=== PATIENT | female | born 1970 | race African-American/Black ===

== ENCOUNTER 2025-01-19 06:14 | Day surgery (SDC) | payer OTHER ==
[2025-01-19] MEDS: BUPIVACAINE HCL/PF 0.25% (2.5MG/ML) 10 ML VIAL STI ONE
[2025-01-19] MEDS ORDERED: cefOXitin SODIUM 2 GM VIAL (RESTRICTED TO ID) IVPB ONE (07:06)
[2025-01-19] MEDS ORDERED: HEPARIN NA (PORCINE) 5,000 UNITS/ML 1ML VIAL ONE (07:06)
[2025-01-19] MEDS ORDERED: BUPIVACAINE HCL/PF 0.25% (2.5MG/ML) 10 ML VIAL ONE (07:06)
[2025-01-19] MEDS ORDERED: ONDANSETRON 4 MG/2 ML VIAL ONE (07:24)
[2025-01-19] MEDS ORDERED: LIDOCAINE HCL/PF 2% SDV 5ML VIAL ONE (07:24)
[2025-01-19] MEDS ORDERED: DEXAMETHASONE SOD PHOSPHATE 4 MG/1 ML VIAL ONE (07:24)
[2025-01-19] MEDS ORDERED: SUCCINYLCHOLINE CHLORIDE 200 MG/10 ML SYRINGE ONE (07:25)
[2025-01-19] MEDS ORDERED: ROCURONIUM BROMIDE 50 MG/5 ML SYRINGE ONE ×2 (07:25→10:09)
[2025-01-19] MEDS ORDERED: SUGAMMADEX SODIUM 200 MG/2 ML VIAL ONE ×2 (07:25→15:23)
[2025-01-19] MEDS ORDERED: MIDAZOLAM HCL 2 MG/2 ML SINGLE DOSE VIAL ONE ×2 (07:25→08:25)
[2025-01-19] MEDS ORDERED: PROPOFOL 100 ML ONE (07:25)
[2025-01-19] MEDS: BUPIVACAINE HCL/PF 0.25% (2.5MG/ML) 10 ML VIAL IJ ONE ×2 (09:15)
[2025-01-19] MEDS ORDERED: PROPOFOL 40 ML ONE (12:08)
[2025-01-19] MEDS ORDERED: PROPOFOL 20 ML ONE (15:22)
[2025-01-19] MEDS ORDERED: ONDANSETRON 4 MG/2 ML VIAL IVPUSH PRN ×2 (15:46→15:51)
[2025-01-19] MEDS ORDERED: ALBUTEROL SO4 HFA INHALER IH PRN (16:00)
[2025-01-19] MEDS: ACETAMINOPHEN 1000 MG/100 ML BAG IVPB SCH (16:14)
[2025-01-19] MEDS: KETOROLAC TROMETHAMINE 15 MG/ML VIAL IVPUSH SCH (16:22)
[2025-01-19] MEDS: LACTATED RINGERS SOLUTION 1,000 ML IV SCH (16:41)
[2025-01-19] MEDS: SODIUM CHLORIDE 1,000 ML IV SCH (17:29)
[2025-01-19 18:26] LABS: ABSOLUTE IMMATURE GRANULOCYTES 0.06 x10^3/uL (0.0-0.031); BASOPHILS # 0.02 x10^3/uL (0.01-0.08); EOSINOPHIL % 0.0 % (0.7-5.8); EOSINOPHILS # 0.00 x10^3/uL (0.04-0.36); MCHC 30.4 g/dl (32.2-35.5); MEAN CELL VOLUME 71.2 fl (79.4-94.8); MEAN PLT VOLUME 10.9 fl (9.4-12.3); MONOCYTE # 0.37 x10^3/uL (0.24-0.86); MONOCYTE % 3.1 % (4.7-12.5); RDW 16.8 % (12.3-16.6)
[2025-01-19 18:47] LABS: GLUCOSE,RANDOM 136.0 mg/dL (74-106)
[2025-01-19 18:48] LABS: TOT PROT 7.6 g/dl (6.4-8.2)
[2025-01-19 18:49] LABS: CO2 27.0 mmol/L (21-32)
[2025-01-19] MEDS: morphine CARPU-JECT 2 MG/1 ML DISP.SYRIN IVPUSH PRN (18:49)
[2025-01-19] MEDS: CEFAZOLIN 1 GM in DEXTROSE 5%-WATER - 50 ML IVPB SCH (18:49)
[2025-01-19 18:50] LABS: ALK PHOS 67.0 U/L (40-150)
[2025-01-19 18:53] LABS: CREATININE 0.73 mg/dL (0.55-1.3); SGOT/AST 32.0 U/L (5-34); SGPT/ALT 27.0 U/L (0-55)
[2025-01-20 06:43] LABS: MCHC 29.7 g/dl (32.2-35.5); MEAN CELL VOLUME 70.1 fl (79.4-94.8); MEAN PLT VOLUME 11.3 fl (9.4-12.3); RDW 16.4 % (12.3-16.6)
[2025-01-20 07:05] LABS: GLUCOSE,RANDOM 101.0 mg/dL (74-106); TOT PROT 6.4 g/dl (6.4-8.2)
[2025-01-20 07:08] LABS: ALK PHOS 57.0 U/L (40-150)
[2025-01-20 07:11] LABS: CREATININE 0.62 mg/dL (0.55-1.3); SGOT/AST 48.0 U/L (5-34); SGPT/ALT 21.0 U/L (0-55)
[2025-01-20 07:33] LABS: CO2 26.0 mmol/L (21-32)
[2025-01-20] MEDS: LOSARTAN POTASSIUM 50 MG TABLET PO SCH (09:43)
[2025-01-20] MEDS: amLODIPine BESYLATE 10 MG TABLET (FP) PO SCH (09:43)
[2025-01-20 17:26] VITALS: BP 135/80; PULSE 81; RESP 18; TEMP 98.8
== END 2025-01-20 18:30 | disposition home or self-care (01) ==
LOC: JASUSAT 06:14 → J4W 18:40 → JASUSAT 01-20 18:30
PROVIDERS: ATTEND Internal Medicine
PROC: 0DQV4ZZ Repair Mesentery, Percutaneous Endoscopic Approach (ICD-10-PCS; principal; 2025-01-19 08:00)
DX: K43.9 Ventral hernia without obstruction or gangrene (principal); K43.2 Incisional hernia without obstruction or gangrene
CPT/HCPCS: 49615; S2900; 36415; 80053; 83735; 84100; 85025; 85027; 86850; 86900; 86901; 94760; C1781